=== PATIENT | male | born 2000 | race American Indian/Alaskan Native ===

== ENCOUNTER 2022-03-04 19:43 | Emergency (ER) | payer OTHER ==
[2022-03-04] MEDS ORDERED: Sulfamethoxazole/Trimethoprim 800-160 MG Tab PO ONE (19:44)
[2022-03-04] MEDS ORDERED: Phenazopyridine 95 MG Tab PO ONE (19:44)
[2022-03-04] MEDS ORDERED: Sulfamethoxazole/Trimethoprim 800-160 MG Tab ONE (21:06)
[2022-03-04] MEDS ORDERED: Phenazopyridine 95 MG Tab ONE (21:18)
[2022-03-04 21:25] VITALS: BP 119/84; PULSE 77
== END 2022-03-04 21:15 | disposition home or self-care (01) ==
LOC: DL.ED 19:43
DX: N39.0 Urinary tract infection, site not specified (principal); F17.210 Nicotine dependence, cigarettes, uncomplicated
CPT/HCPCS: 81001; 87086; 99283; A9270-GY

== ENCOUNTER 2022-10-11 09:53 | Emergency (ER) | payer OTHER ==
[2022-10-11] MEDS ORDERED: Sodium Chloride 0.9% 10 ML Syringe FLUSH PRN (10:06)
[2022-10-11] MEDS ORDERED: Sodium Chloride 0.9% 1,000 ML IV ONE (10:06)
[2022-10-11] MEDS ORDERED: cefTRIAXone 2 GM in Sodium Chloride 0.9% 100 ML IV ONE (10:06)
[2022-10-11] MEDS ORDERED: Ondansetron 4 MG/2 ML SDV IV ONE (10:06)
[2022-10-11] MEDS ORDERED: Dexamethasone 4 MG/ML SDV IVPUSH ONE (10:07)
[2022-10-11] MEDS ORDERED: Azithromycin 500 MG in Sodium Chloride 0.9% 250 ML IV ONE (10:07)
[2022-10-11] MEDS ORDERED: GI Cocktail Oral Solution 30 ML PO ONE (10:12)
[2022-10-11 10:49] LABS: CORONAVIRUS COVID-19 NAA NEGATIVE (NEGATIVE); RESPIRATORY SYNCYTIAL VIR NAA NEGATIVE (NEGATIVE)
[2022-10-11 10:57] VITALS: BP 147/100; PULSE 124
[2022-10-11] MEDS ORDERED: Acetaminophen 500 MG Tab PO ONE (12:08)
== END 2022-10-11 13:02 | disposition home or self-care (01) ==
LOC: DL.ED 09:53
DX: J36 Peritonsillar abscess (principal); Z20.822 Contact with and (suspected) exposure to COVID-19
CPT/HCPCS: 0241U; 87430; 96361; 96365; 96375; 99283; A9270; J0456; J0696; J1100; J2405; J3490; J7030; J7050

== ENCOUNTER 2023-03-29 04:13 | Emergency (ER) | payer OTHER ==
[2023-03-29] MEDS ORDERED: Ondansetron 4 MG/2 ML SDV IVPUSH ONE (04:37)
[2023-03-29] MEDS ORDERED: Sodium Chloride 0.9% 10 ML Syringe FLUSH PRN (04:37)
[2023-03-29] MEDS ORDERED: HYDROmorphone 1 MG/ML Syringe IVPUSH ONE (04:37)
[2023-03-29 05:05] LABS: BASOPHILS PERCENT AUTO 0.6 % (0.0-1.0); EOSINOPHILS PERCENT AUTO 1.9 % (1.0-3.0); HEMATOCRIT 47.5 % (40.0-54.0); HEMOGLOBIN 16.9 g/dL (14.0-18.0); LYMPHOCYTES PERCENT AUTO 31.1 % (20.5-50.1); MEAN CORPUSCULAR HEMOGLOBIN 32.2 pg (27.0-34.0); MEAN CORPUSCULAR HGB CONC 35.6 g/dL (33.0-35.0); MEAN CORPUSCULAR VOLUME 90.5 fL (80-100); MONOCYTES PERCENT AUTO 7.9 % (2-8); NEUTROPHILS PERCENT AUTO 58.5 % (42.2-75.2); PLATELET COUNT,PLT 267 10^3/uL (150-450); RED BLOOD CELL COUNT 5.25 10^6/uL (4.6-6.2); WHITE BLOOD CELL COUNT,WBC 11.1 10^3/uL (5.0-10.0)
[2023-03-29] MEDS ORDERED: Sodium Chloride 0.9% 1,000 ML IV ONE (05:16)
[2023-03-29 05:18] LABS: ANION GAP 16.8 mEq/L (7-13); CALCIUM 9.2 mg/dL (8.5-10.1); CREATININE 1.05 mg/dL (0.70-1.30); EST CRCL DRUG DOSING (CG) 117.53 mL/min; POTASSIUM,K 3.8 mmol/L (3.5-5.1)
[2023-03-29 09:30] VITALS: BP 110/78; PULSE 82
== END 2023-03-29 09:25 | disposition home or self-care (01) ==
LOC: DL.ED 04:13
DX: S52.041A Displaced fracture of coronoid process of right ulna, initial encounter for closed fracture (principal); W50.0XXA Accidental hit or strike by another person, initial encounter
CPT/HCPCS: 01820; 24600; 24605; 29105; 36415; 73070-RT; 73080-RT; 80048; 85025; 96361; 96374; 96375; 99283-25; 99284; J1170; J2405; J3490; J7030

== ENCOUNTER 2023-06-26 07:54 | Emergency (ER) | payer OTHER ==
[2023-06-26 09:38] VITALS: BP 145/98; PULSE 96
== END 2023-06-26 09:22 | disposition home or self-care (01) ==
LOC: DL.ED 07:54
DX: Z04.1 Encounter for examination and observation following transport accident (principal); V43.52XA Car driver injured in collision with other type car in traffic accident, initial encounter; Y92.410 Unspecified street and highway as the place of occurrence of the external cause
CPT/HCPCS: 70450; 72125; 99282; 99284